=== PATIENT | male | born 1975 | race Caucasian/White ===

== ENCOUNTER 2022-01-12 16:26 | Inpatient (IN) | payer OTHER, SELFPAY ==
[2022-01-12] VITALS (7 sets, daily range): BP systolic 120–143; BP diastolic 68–90; PULSE 81–111; RESP 14–18; TEMP 36.2–36.8; O2SAT 95–97; BMI 29.6; BMI 30.4
[2022-01-12 18:17] LABS: Basophils % 0.4 %; Eosinophils # 0.1 10^3/uL (0.0-0.8); Hematocrit 46.6 % (42.0-52.0); Hemoglobin 15.8 g/dL (11.7-16.6); Lymphocytes % 31.3 %; Mean Corpuscular HGB Conc 33.9 g/dL (30.0-36.0); Mean Corpuscular Hemoglobin 29.4 pg (28.0-34.0); Mean Corpuscular Volume 86.8 fl (80-94); Monocytes # 0.8 10^3/uL (0.2-0.9); Monocytes % 8.4 %; Neutrophils % 58.7 %; Nucleated Red Blood Cells % 0 %; Platelet Count 349 10^3/cmm (130-400); Red Blood Count 5.37 10^6/uL (4.1-5.3); Red Cell Distribution Width 13.5 % (12.1-15.1); White Blood Count 9.6 10^3/uL (4.0-10.0)
[2022-01-12 18:37] LABS: Alanine Aminotransferase 18 U/L (0-41); Albumin Level 4.3 g/dL (3.5-5.2); Alkaline Phosphatase 87 IU/L (40-130); Aspartate Amino Transferase 18 U/L (0-40); Blood Urea Nitrogen 17 mg/dL (6-20); Calcium 9.6 mg/dL (8.5-10.5); Carbon Dioxide 23 mmol/L (22-29); Chloride 92 mmol/L (98-107); Globulin 2.7 g/dL (1.3-4.6); Glomerular Filtration Rate 90.8 mL/min (90-130); Glucose 93 mg/dL (65-115); Lipase 19 U/L (13-60); Osmolality Calculated 273 mOsm/kg (285-295); Sodium 131 mmol/L (136-145); Total Bilirubin 0.5 mg/dL (0.15-1.2)
--- NOTE | 2022-01-12 18:44 | CTR_ITS ---
PROCEDURE INFORMATION: Exam: CT Abdomen And Pelvis Without Contrast Exam date and time: 01/12/2022 7:10 PM Age: 46 years old Clinical indication: Abdominal pain; Generalized; Additional info: Generalized abd pain, abdomen bloating, TECHNIQUE: Imaging protocol: Computed tomography of the abdomen and pelvis without contrast. Radiation optimization: All CT scans at this facility use at least one of these dose optimization techniques: automated exposure control; mA and/or kV adjustment per patient size (includes targeted exams where dose is matched to clinical indication); or iterative reconstruction. COMPARISON: CR XR abdomen min 2V [id number] 01/11/2022 12:58 PM RADIATION DOSE METRICS: Total DLP (mGy-cm): 4.31 FINDINGS: Liver: Normal. No mass. Gallbladder and bile ducts: Normal. No calcified stones. No ductal dilation. Pancreas: Normal. No ductal dilation. Spleen: Normal. No splenomegaly. Adrenal glands: Normal. No mass. Kidneys and ureters: Normal. No hydronephrosis. Stomach and bowel: Dilated small bowel loops measuring up to 5.3 cm consistent with an obstruction, perhaps high-grade given the degree of dilation, negative for transition point seen. Additionally a large amount of air is seen in the colon with mild dilation of the colon to 9.5 cm, negative for focal transition point, suggestive of possible Monica's syndrome. Appendix: No evidence of appendicitis. Intraperitoneal space: Unremarkable. No free air. No significant fluid collection. Vasculature: Unremarkable. No abdominal aortic aneurysm. Lymph nodes: Unremarkable. No enlarged lymph nodes. Urinary bladder: Unremarkable as visualized. Reproductive: Unremarkable as visualized. Bones/joints: Unremarkable. No acute fracture. Soft tissues: Unremarkable. CT/CT abdomen pelvis wo con [id number] IMPRESSION: Dilated small bowel loops measuring up to 5.3 cm consistent with an obstruction, perhaps high-grade given the degree of dilation, negative for transition point seen. Additionally a large amount of air is seen in the colon with mild dilation of the colon to 9.5 cm, with a suspected transition point in the mid sigmoid colon, best seen series 3, image 86, consider correlation with colonoscopy to exclude an underlying lesion
--- NOTE | 2022-01-12 19:00 | W.ED.ABDPA2 ---
HPI - Abdominal Pain General: Chief Complaint: Abdominal Pain Stated Complaint: Doc sent to be checked for blockage in stomach Time Seen by Provider: 01/12/22 18:25 Source: patient Mode of arrival: ambulatory Limitations: no limitations History of Present Illness: This patient was referred to the emergency department for evaluation. He was seen at one of the local acute care clinics yesterday and based upon some findings which are not available to us at this time was referred here for further evaluation. The patient gives a history over the past number of weeks of having intermittent episodes where he feels bloated and full. He says it during these episodes he attempts to eat various foods and drinks and sometimes successfully sometimes not and winds up having repetitive emesis. He states it does not seem to be related to any particular kind of foods over the past 2 weeks. He states that he was quite symptomatic yesterday but today he feels less symptoms. He states that he has never had any abdominal surgeries. He states his stools have decreased in volume and caliber particularly when he has had less success with eating. He denies any fevers or chills or exposure to illness at home. He does admit to increased stress over this past several months related to job change. 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 much easier. He states he has been urinating but a periods of time when he has repetitive vomiting he does not urinate as much and his urine seems to be more concentrated. He denies any blood in his stool or blood in his emesis. He is a almost quit smoker and does not drink alcohol currently. He does not take any nonsteroidals etc. He has occasionally taken H2 blockers in the past. No history of cardiovascular disease. MD elicited complaint: abdominal pain Pain Consistency: intermittent Quality: cramping and fullness Exacerbating factors: eating Relieving factors: nothing Associated Symptoms: Reports belching, bloating and vomiting; Denies chills, coffee ground emesis, dysuria, fever(s), hematochezia and melena Review of Systems Const: Denies: fever(s), chills or body aches Eyes: Denies: change in vision or blurry vision ENMT: Denies: throat pain, odynophagia or nasal congestion Card: Denies: chest pain, palpitations, irregular heart rhythm, edema or dyspnea on exertion Resp: Denies: dyspnea, productive cough or non-productive cough GI: Reports: vomiting, bloating and belching; Denies: coffee ground emesis, hematochezia or melena : Denies: flank pain, difficulty urinating, dysuria or urinary frequency Musc: Denies: neck pain, back pain, extremity pain or joint swelling Skin/Breast: Denies: rash Neuro: Denies: headache(s), numbness in extremities or weakness in extremities Psych: Denies: anxiety or depression Dennys/Lymph: Denies: easy bruising or easy bleeding Physical Exam Narrative: EXAM NARRATIVE: Makes good eye contact. Answers questions in a goal-directed fashion. Appears to be comfortable. Const: COMMON NORMALS: no acute distress, patient oriented x3 and alert GENERAL APPEARANCE: cooperative and comfortable NUTRITIONAL APPEARANCE: overweight HENMT: COMMON NORMALS: normocephalic, atraumatic, Normal nasal mucous membranes and turbinates present and moist oral mucous membranes HEAD & SCALP: normocephalic and atraumatic NOSE: Normal nasal mucous membranes and turbinates present Eye: COMMON NORMALS: Equal, round and reactive pupils present, EOMs intact bilaterally, conjunctivae normal and no scleral icterus CONJUNCTIVA: Yes conjunctivae normal PUPIL: Yes Equal, round and reactive pupils present Neck/C-Spine: COMMON NORMALS: full ROM, supple, no JVD and No carotid bruits Chest: COMMONS NORMALS: normal inspection of the chest and normal palpation of entire chest wall Resp: COMMON NORMALS: normal respiratory effort, No retractions, No use of accessory muscles and clear to auscultation bilaterally EFFORT & INSPECTION: Yes able to speak in complete sentences AUSCULTATION: clear to auscultation bilaterally Cardio: COMMON NORMALS: no JVD, regular rate, regular rhythm, S1 normal heart sound present, No murmurs present (Cardio) and Peripheral pulses 2+ throughout RATE: regular rate RHYTHM: regular rhythm HEART SOUNDS: S1 normal heart sound present PERIPHERAL PULSES: Peripheral pulses 2+ throughout GI: COMMON NORMALS: Soft to palpation INSPECTION: Yes abdominal distension, Yes central obesity and No Fluid wave present AUSCULTATION: Yes normoactive bowel sounds PALPATION: Yes Soft to palpation and No Rebound tenderness present PERCUSSION: no fluid wave and tympanic to percussion : COMMON NORMALS: Yes no CVA tenderness BLADDER/KIDNEY EXAM: Yes no CVA tenderness Back/Pelvis: COMMON NORMALS: no CVA tenderness, thoracic and lumbar spine normal to inspection, no thoracic nor lumbar tenderness and thoraco-lumbar ROM normal Extremity: COMMON NORMALS: normal to inspection, full ROM, capillary refill normal, no calf tenderness and no pedal edema Neuro: COMMON NORMALS: patient oriented x3, moves all extremities, no focal motor deficits and no sensory deficits noted SENSORIUM/ORIENTATION: Yes alert CRANIAL NERVES: Yes CN normal except as noted SPEECH: speech normal Psych: COMMON NORMALS: mental status grossly normal, Normal thought process present and normal affect THOUGHT PROCESS: Normal thought process present Skin: COMMON NORMALS: no rashes or lesions noted and no jaundice GENERAL SKIN EXAM: no rashes or lesions noted Course Reevaluation(s): Reevaluation #1: CT scan results noted consistent with high-grade bowel obstruction. Discussed findings with patient. Will contact attending surgeon to discuss admission. Time: 20:48 Consultations: Consultation #1: Discussed with attending general surgeon who reviewed his case and he agreed to place the patient in the hospital for treatment and the reevaluation. Time: 21:24 Vital Signs: Vital signs: Vital Signs Temperature 97.5 F L 01/12/22 18:38 Pulse Rate 81 01/12/22 20:53 Respiratory Rate 16 01/12/22 20:53 Blood Pressure 143/82 01/12/22 20:53 Pulse Oximetry 96 01/12/22 20:53 MDM - Abdominal Pain Medical Decision Making Generally healthy gentleman who presents to the emergency department with intermittent episodes of abdominal pain bloating distention and nausea and vomiting has been occurring over the past number of weeks but is worsened over the past week. No prior abdominal surgeries or other significant past medical history. His CT scan today shows what appears to be a high-grade bowel obstruction with with a questionable transition point at the sigmoid. He will be admitted to the hospital for observation NG tube IV hydration and symptom control and followed by general surgery. Differential Diagnosis Likely small bowel obstruction Lab Data I reviewed the patient's lab results. : 01/12/22 18:10 01/12/22 18:10 Labs/Radiology: Radiology Impressions Abdomen/Pelvis CT 01/12/22 18:44 IMPRESSION: Dilated small bowel loops measuring up to 5.3 cm consistent with an obstruction, perhaps high-grade given the degree of dilation, negative for transition point seen. Additionally a large amount of air is seen in the colon with mild dilation of the colon to 9.5 cm, with a suspected transition point in the mid sigmoid colon, best seen series 3, image 86, consider correlation with colonoscopy to exclude an underlying lesion Laboratory Results WBC 9.6 10^3/uL (4.0-10.0) 01/12/22 18:10 RBC 5.37 10^6/uL (4.1-5.3) H 01/12/22 18:10 Hgb 15.8 g/dL (11.7-16.6) 01/12/22 18:10 Hct 46.6 % (42.0-52.0) 01/12/22 18:10 MCV 86.8 fl (80-94) 01/12/22 18:10 MCH 29.4 pg (28.0-34.0) 01/12/22 18:10 MCHC 33.9 g/dL (30.0-36.0) 01/12/22 18:10 RDW 13.5 % (12.1-15.1) 01/12/22 18:10 Plt Count 349 10^3/cmm (130-400) 01/12/22 18:10 MPV 10.0 fL (7.4-10.4) 01/12/22 18:10 Neut % (Auto) 58.7 % 01/12/22 18:10 Lymph % (Auto) 31.3 % 01/12/22 18:10 Dawson % (Auto) 8.4 % 01/12/22 18:10 Eos % (Auto) 1.0 % 01/12/22 18:10 Baso % (Auto) 0.4 % 01/12/22 18:10 Neut # (Auto) 5.60 10^3/uL (1.8-7.7) 01/12/22 18:10 Lymph # (Auto) 3.0 10^3/uL (0.8-4.8) 01/12/22 18:10 Dawson # (Auto) 0.8 10^3/uL (0.2-0.9) 01/12/22 18:10 Eos # (Auto) 0.1 10^3/uL (0.0-0.8) 01/12/22 18:10 Baso # (Auto) 0.0 10^3/uL (0.0-0.1) 01/12/22 18:10 Nucleated RBC % (auto) 0 % 01/12/22 18:10 Nucleated RBCs # 0.0 /100WBC 01/12/22 18:10 Sodium 131 mmol/L (136-145) L 01/12/22 18:10 Potassium 4.0 mmol/L (3.5-5.1) 01/12/22 18:10 Chloride 92 mmol/L (98-107) L 01/12/22 18:10 Carbon Dioxide 23 mmol/L (22-29) 01/12/22 18:10 Anion Gap 20.0 (5-19) H 01/12/22 18:10 BUN 17 mg/dL (6-20) 01/12/22 18:10 Creatinine 0.9 mg/dL (0.7-1.2) 01/12/22 18:10 GFR Calculation 90.8 mL/min (90-130) 01/12/22 18:10 Glucose 93 mg/dL (65-115) 01/12/22 18:10 Calculated Osmolality 273 mOsm/kg (285-295) L 01/12/22 18:10 Calcium 9.6 mg/dL (8.5-10.5) 01/12/22 18:10 Total Bilirubin 0.5 mg/dL (0.15-1.2) 01/12/22 18:10 AST 18 U/L (0-40) 01/12/22 18:10 ALT 18 U/L (0-41) 01/12/22 18:10 Alkaline Phosphatase 87 IU/L (40-130) 01/12/22 18:10 Total Protein 7.0 g/dL (6.6-8.7) 01/12/22 18:10 Albumin 4.3 g/dL (3.5-5.2) 01/12/22 18:10 Globulin 2.7 g/dL (1.3-4.6) 01/12/22 18:10 Lipase 19 U/L (13-60) 01/12/22 18:10 Discharge Plan Discharge Patient Disposition: Admitted As Inpatient Clinical Impression: Small bowel obstruction Condition: Stable Coding Level of Care Code ED Aquatics Director for Chg Fwd Exam Comprehensive
[2022-01-12] MEDS: lactated ringers 1,000 ML 125 ML IV (21:26)
--- NOTE | 2022-01-12 22:16 | PC.NURSE ---
Patient Refusal of NG Tube Placement Patient given education/explanation regarding ordered NG tube placement and benefits. Patient stated I do not want that. I am comfortable now and do not have nausea or puking. If it's absolutely necessary, then I'll do it, but I do not want that right now. I am comfortable. Education reiterated regarding benefits of NG Tube placement. Patient once again stated that he did not want the NG Tube until absolutely necessary.
[2022-01-13] VITALS (8 sets, daily range): BP systolic 109–151; BP diastolic 69–92; PULSE 73–93; RESP 12–20; TEMP 36.3–36.8; O2SAT 95–99
[2022-01-13] MEDS: lactated ringers 1,000 ML 125 ML IV ×3 (06:39→22:54)
--- NOTE | 2022-01-13 06:51 | P.HP_ITS ---
Providers/Chief Complaint Admitting Physician: Glen Carpenter MD Chief Complaint: Doc sent to be checked for blockage in stomach History of Present Illness Mr. Daren Edmond is a pleasant 46 year old male presents to the emergency department based on recommendation of an urgent care provider day before admission. Apparently the patient has been having sense of bloating over the past few weeks and last time he had a bowel movement was Sunday. He has been having intermittent episodes of vomiting. Does not seem to be related to any specific type of food. He denies any previous abdominal surgeries. And appears to be more constipated. Per nursing staff patient had lost about 35 pounds over the past few months. Pain is more cramping and being intermittent, gets worse with eating and nothing makes it better associated with belching and vomiting. Denies any bleeding per orifices. Lab values are within normal limits and undergone a KUB that did show Air-fluid levels on the upright view with moderate diffuse pancolonic constipation. Findings can be further evaluated CT abdomen pelvis to assess obstruction versus ileus. CT scan of the abdomen pelvis was done following that that showed; Dilated small bowel loops measuring up to 5.3 cm consistent with an obstruction, perhaps high-grade given the degree of dilation, negative for transition point seen. Additionally a large amount of air is seen in the colon with mild dilation of the colon to 9.5 cm, with a suspected transition point in the mid sigmoid colon, best seen series 3, image 86, consider correlation with colonoscopy to exclude an underlying lesion General surgery was consulted for admission and potential management Patient reports that he does not have any bleeding per rectum or history of colon cancer and he never had a colonoscopy before, before couple of weeks or so he had very large bowel movement which was hard and he had a huge relief at that point. Does not recall any change in caliber like a toothpick structure Review of Systems General: Reports: 10 or more systems reviewed and unremarkable except in HPI and below Medications/Allergies Home Medications Medication Instructions Recorded Confirmed Last Taken Type pantoprazole 20 mg tablet,delayed 20 mg PO DAILY@10 01/13/22 01/13/22 01/12/22 History release Allergies Allergy/AdvReac Type Severity Reaction Status Date / Time No Known Allergies Allergy Verified 01/13/22 13:30 PFSH Acute PFSH: Social History Alcohol intake: never Desire information about alcohol rehabilitation?: No Vitals/I&O/Wt Last Vital Signs Temp 98.2 F 01/13/22 03:43 Pulse 76 01/13/22 03:43 Resp 18 01/13/22 03:43 BP 128/78 01/13/22 03:43 Pulse Ox 95 01/13/22 03:43 01/12/22 01/12/22 01/13/22 14:59 22:59 06:59 Intake Total 1000 / 1000 Output Total 400 / 400 Balance 600 / 600 Weight last 48 hrs Weight 231 lb Weight 231 lb Physical Exam Const: COMMON NORMALS: no acute distress and patient oriented x3 GENERAL APPEARANCE: cooperative ORIENTATION/CONSCIOUSNESS: Yes awake, Yes oriented to person, Yes oriented to place and Yes oriented to time HENMT: COMMON NORMALS: normocephalic HEAD & SCALP: normocephalic Eye: COMMON NORMALS: Equal, round and reactive pupils present and no scleral icterus PUPIL: Yes Equal, round and reactive pupils present Lymph: LYMPHATIC: no lymphadenopathy noted Chest: COMMONS NORMALS: normal inspection of the chest Resp: COMMON NORMALS: normal respiratory effort and clear to auscultation bilaterally AUSCULTATION: clear to auscultation bilaterally Cardio: COMMON NORMALS: S1 normal heart sound present and S2 normal heart sound present; negative for No murmurs present (Cardio) HEART SOUNDS: S1 normal heart sound present and S2 normal heart sound present GI: COMMON NORMALS: Soft to palpation; negative for No hepatosplenomegaly present INSPECTION: Yes normal to inspection PALPATION: Yes Soft to palpation, No Firmness to palpation present (GI), No Tenderness to palpation present (GI), No Guarding due to palpation present (GI), No Rigid due to palpation and No No hepatosplenomegaly present Neuro: COMMON NORMALS: patient oriented x3 SENSORIUM/ORIENTATION: Yes oriented to person, Yes oriented to place and Yes oriented to time Psych: COMMON NORMALS: mental status grossly normal Skin: COMMON NORMALS: no rashes or lesions noted GENERAL SKIN EXAM: no rashes or lesions noted Data : 01/12/22 18:10 01/12/22 18:10 A&P Assessment and plan (1) Large bowel obstruction: Plan of care; After thorough history and physical examination and reviewing the chart, and images with my personal trepidation, we will plan to insert NG tube to low int ermittent wall suction to decompress the bowel. I am concerned that the patient may have a sigmoid colon pathology that is causing the obstruction. Plan to perform flex sigmoidoscopy GI lab using CO2 I discussed with the patient in details the risks,benefits,alternatives and indications.The risk of aspiration, bleeding, soft tissue injury, perforation of the colon and other potential concomitant complications were explained to the patient in details,also the potential need for Laproscoy/Laparotomy to repair any related complications including but not limited to colectomy and or Closotomy.The patient understood this well and did agree to proceed. Rationale was carefully and clearly discussed with the patient.Appropriate informed consent have been reviewed and signed All questions have been answered and all concerns have been addressed to patient's satisfaction. Verbal and written Instructions were given to the patient for colonoscopy prep As a side note I did discuss in depth and in length with Dr. San our radiologist the CT scan findings and he did not appreciate gross pathology of the rectosigmoid area but it does not appear that the patient has a volvulus either. I would plan to perform a flex sig and rule out potential underlying neoplasia. Status: Acute Attestations Medical Necessity Statement*: Patient will require inpatient admission passing 2 midnight for further care Coding Level of Care Code Acute Assistant Professor Of Mathematics for [facility] Fwd Exam Comprehensive Diagnoses Large bowel obstruction K56.609
--- NOTE | 2022-01-13 07:44 | XR_ITS ---
WS: [email or web address] KUB, AP view, 01/13/2022 Clinical Data: verify NG tube placement Comparison: KUB, 01/11/2022. Findings: The nasogastric tube may be curled in the fundus of the stomach. There are dilated small bowel loops throughout the abdomen unchanged. XR/XR abdomen 1V* [id number] Impression: Distal nasogastric tube probably in fundus of the stomach.
--- NOTE | 2022-01-13 08:16 | XR_ITS ---
WS: [email or web address] KUB, AP view, 01/13/2022 0823 hours Clinical Data: repeat verification of NG tube placement Comparison: KUB, 01/13/2022, 0752 hours Findings: The position of the nasogastric tube has not changed significantly. Again it may be curled in the fun dus of the stomach. There is a large amount of small bowel gas throughout the abdomen. XR/XR abdomen 1V* [id number] Impression: Distal portion of the nasogastric tube may be curled in the fundus of the stoma ch.
[2022-01-13 08:23] LABS: Carcinoembryonic Antigen 2.8 ng/mL (0.0-4.7)
--- NOTE | 2022-01-13 08:57 | XR_ITS ---
WS: [email or web address] KUB, AP view, 01/13/2022, 0905 hours Clinical Data: repeat ng placement Comparison: KUB, 01/13/2022, 0823 hours. Findings: The nasogastric tube has been straightened. The tip is probably within the fundus of the stomach. The re is still a large amount of small bowel gas. XR/XR abdomen 1V* [id number] Impression: Nasogastric tube is now straight and probably ends in the fundus of the stomach .
--- NOTE | 2022-01-13 11:12 | PC.NURSE ---
DR. DIAZ CALLED TO GET AN UPDATE ON PATIENT. NO OUTPUT FROM NG TUBE CURRENTLY. PATIENT IS STILL NOT PASSING ANY GAS.
--- NOTE | 2022-01-13 13:45 | ANES.PREANE2 ---
Pre-Anesthetic Assessment Height/Weight: Height 1.85 m Weight 104.78 kg Temp Pulse Resp BP Pulse Ox 98 F 76 12 134/90 96 01/13/22 12:00 01/13/22 12:00 01/13/22 12:00 01/13/22 12:00 01/13/22 12:00 Preop Diagnosis: Large bowel obstruction Operation Date: 01/13/22 14:30 Proposed Procedures p Sigmoidoscopy(Not Applicable) - Glen Carpenter MD Last intake: 1300 on 01/12/22 Last Intake: 16:00 Social Alcohol (quit drinking 3 month) and Tobacco (1/2 ppd) Exam alert and oriented x 3 Airway Mallampati: Class II Dentition: chipped (upper back molars) History/ROS No significant history except as noted Pulmonary Chronic Obstructive Pulmonary Disease None reported Hepatic None reported GI Gastroesophageal Reflux Disease Metabolic None reported Musc/skel None reported Neuropsych None reported Anesthetic Plan ASA status: 2 Anesthesia: MAC Risk of > 500 ml blood loss (7ml/kg in children): No Medications/Allergies Home Medications Medication Instructions Recorded Confirmed Last Taken Type pantoprazole 20 mg tablet,delayed 20 mg PO DAILY@10 01/13/22 01/13/22 01/12/22 History release Allergies Allergy/AdvReac Type Severity Reaction Status Date / Time No Known Allergies Allergy Verified 01/13/22 13:30 Current Medications Generic Name Dose Route Start Last Admin Trade Name Freq PRN Reason Stop Dose Admin Lactated Ringer's 1,000 mls @ 125 mls/hr 01/12/22 21:15 01/13/22 06:39 Lactated Ringers IV 125 mls/hr .Q8H KIMBERLEE Administration PFSH Anesthesia Social History Alcohol intake: never Desire information about alcohol rehabilitation?: No Data Anesthesia : 01/12/22 18:10 01/12/22 18:10 Short CBC 01/12/22 Range/Units 18:10 WBC 9.6 (4.0-10.0) 10^3/uL Hgb 15.8 (11.7-16.6) g/dL Hct 46.6 (42.0-52.0) % MCV 86.8 (80-94) fl Plt Count 349 (130-400) 10^3/cmm Neut % (Auto) 58.7 % Neut # (Auto) 5.60 (1.8-7.7) 10^3/uL BMP 01/12/22 18:10 Sodium 131 L Potassium 4.0 Chloride 92 L Carbon Dioxide 23 BUN 17 Creatinine 0.9 Glucose 93 Calcium 9.6 Liver Function 01/12/22 Range/Units 18:10 Total Bilirubin 0.5 (0.15-1.2) mg/dL AST 18 (0-40) U/L ALT 18 (0-41) U/L Alkaline Phosphatase 87 (40-130) IU/L Albumin 4.3 (3.5-5.2) g/dL Cardiac Studies: No Data to Display
[2022-01-13] MEDS: sodium chloride 0.9% 1,000 ML 30 ML IV ×2 (14:00→15:45)
[2022-01-13] MEDS: famotidine 20 mg/2 mL INJ IVP (17:08)
--- NOTE | 2022-01-13 21:49 | PC.NURSE ---
Flushed patient's NG tube with 50mL water per Dr Wong instructions over the phone. Patient stated that there was no pain or nausea afterwards. NG hooked back to low-intermittent suctions. No output so far in the shift
[2022-01-14] VITALS: BP 128/74; PULSE 78; RESP 18; TEMP 36.8; O2SAT 96
[2022-01-14 03:38] VITALS: BP 132/87; PULSE 75; RESP 16; TEMP 36.8; O2SAT 97
--- NOTE | 2022-01-14 05:00 | XRR_ITS ---
PROCEDURE INFORMATION: Exam: XR Abdomen Exam date and time: 01/14/2022 6:16 AM Age: 46 years old Clinical indication: Condition or disease. Intestinal obstruction. Large bowel obstruction. Erect and supine positions. TECHNIQUE: Imaging protocol: XR of the abdomen. Views: 2 Views. Upright and supine views. COMPARISON: CR XR abdomen 1V* [id number] 01/13/2022 9:03 AM FINDINGS: Tubes, catheters and devices: Nasogastric tube with tip in the proximal stomach. Gastrointestinal tract: The stomach, numerous loops of small bowel and colon are distended to the level of the sigmoid colon compatible with colonic obstruction. The appearance is similar to prior. Intraperitoneal space: No free intraperitoneal air is identified. Vasculature: No portal venous gas is seen. Bones/joints: No gross acute fracture. XR/XR abdomen min 2V [id number] IMPRESSION: 1. Nasogastric tube with tip in the proximal stomach. 2. The stomach, numerous loops of small bowel and colon are distended to the level of the sigmoid colon compatible with colonic obstruction. The appearance is similar to prior.
[2022-01-14] MEDS: famotidine 20 mg/2 mL INJ IVP (05:17)
[2022-01-14] MEDS: lactated ringers 1,000 ML 125 ML IV (05:18)
--- NOTE | 2022-01-14 07:40 | PM.PN ---
Subjective Subjective: Patient overall feels a whole lot better, continues to pass gas and he had a bowel movement towards the end of the day shift yesterday after the endoscopy. Medications: Reviewed: Yes Vitals/I&O/Wt Last Vital Signs Temp 98.3 F 01/14/22 03:38 Pulse 75 01/14/22 03:38 Resp 16 01/14/22 03:38 BP 132/87 01/14/22 03:38 Pulse Ox 97 01/14/22 03:38 01/13/22 01/14/22 01/14/22 22:59 06:59 14:59 Intake Total 2118.75 / 3118.75 800 / 3918.75 Balance 2118.75 / 2468.75 800 / 3268.75 Weight last 48 hrs Weight 231 lb Weight 231 lb Physical Exam Narrative: Patient is conscious alert oriented X3 No apparent distress BMI 30.5 Head and neck examination PERRLA no masses no cervical lymphadenopathy no jaundice NG in place with minimal Abdomen nontender less distended soft no organomegaly guarding or rigidity/no signs of peritonitis Positive bowel sounds Extremities no cyanosis no clubbing no edema Data : 01/12/22 18:10 01/12/22 18:10 A&P Assessment and plan (1) Large bowel obstruction: Plan of care; We will plan to DC NG tube after reviewing the x-ray images with my personal interpretation, most of the gas confined to the small and large bowel .I do not believe at this point that the NG is helping much. As patient continues to pass gas I did encourage him to ambulate Certainly I would like to see regression of the gaseous distention on the x-rays and correlate this clinically At some point patient will require a barium enema We will provide the patient with glycerin suppositories Patient can have ice chips and will continue IV fluid resuscitation Repeat labs for today Assurance and education All questions have been answered and all concerns have been addressed to patient's satisfaction. Status: Acute Attestations Medical Necessity Statement*: Requiring inpatient admission passing 2 midnights to resume bowel function and start p.o. intake Time Spent in Patient Care: 16 - 35 minutes Coding Level of Care Code Acute [employer] Educator for [facility] Diagnoses Large bowel obstruction K56.609
[2022-01-14 07:48] VITALS: BP 130/85; PULSE 75; RESP 16; TEMP 36.9; O2SAT 96
--- NOTE | 2022-01-14 08:37 | FL_ITS ---
WS: [id number] Gastrografin Enema TECHNICAL: Single contrast limited Gastrografin enema FLUOROSCOPY TIME: CLINICAL INFORMATION: Colonic obstruction COMPARISON: CT January 12, 2022 FINDINGS: Single contrast Gastrografin enema to evaluate for stricture. Enema tube is placed with balloon inflated. Correlation with recent CT January 12, 2022. Rapid filling of the rectum and distal sigmoid colon. Apparent stricture in the proximal to mid sigmoid colon. Contra st traverses this area of stricture initially with additional contrast pooling in the rectum. Associa nayana diverticulosis in the sigmoid colon is visualized. Findings most likely due to stricture from patsy or diverticulitis. Neoplasm is an additional less likely consideration No intraluminal filling defect s. Additional area of mild narrowing distal to the above-described stricture in the more proximal sig moid colon with intact mucosa likely due to sigmoid tortuosity. FL/FL barium enema [id number] IMPRESSION: High-grade stricture with partial obstruction in the proximal and mid sigmoid c olon most likely due to prior diverticulitis. Neoplasm should be excluded. Discussed with Glen Carpenter MD at time of examination. Dr. Carpenter present for examination.
[2022-01-14] MEDS: glycerin adult supp 1 EACH PR (09:28)
[2022-01-14 09:40] LABS: Basophils # 0.1 10^3/uL (0.0-0.1); Basophils % 0.7 %; Eosinophils # 0.1 10^3/uL (0.0-0.8); Eosinophils % 0.7 %; Hematocrit 44.3 % (42.0-52.0); Hemoglobin 14.9 g/dL (11.7-16.6); Lymphocytes # 2.1 10^3/uL (0.8-4.8); Lymphocytes % 25.1 %; Mean Corpuscular HGB Conc 33.6 g/dL (30.0-36.0); Mean Corpuscular Hemoglobin 29.7 pg (28.0-34.0); Mean Corpuscular Volume 88.4 fl (80-94); Monocytes # 0.6 10^3/uL (0.2-0.9); Monocytes % 7.4 %; Neutrophils # 5.43 10^3/uL (1.8-7.7); Neutrophils % 65.9 %; Nucleated Red Blood Cells % 0 %; Platelet Count 313 10^3/cmm (130-400); Red Blood Count 5.01 10^6/uL (4.1-5.3); Red Cell Distribution Width 13.5 % (12.1-15.1); White Blood Count 8.3 10^3/uL (4.0-10.0)
[2022-01-14 09:43] VITALS: PULSE 82; RESP 17; O2SAT 98
[2022-01-14 09:53] LABS: Alanine Aminotransferase 17 U/L (0-41); Albumin Level 3.8 g/dL (3.5-5.2); Alkaline Phosphatase 84 IU/L (40-130); Anion Gap 19.8 (5-19); Aspartate Amino Transferase 18 U/L (0-40); Blood Urea Nitrogen 11 mg/dL (6-20); Calcium 9.2 mg/dL (8.5-10.5); Carbon Dioxide 20 mmol/L (22-29); Chloride 98 mmol/L (98-107); Creatinine Clr Calc Pharmacy 146.6335; Globulin 2.9 g/dL (1.3-4.6); Glomerular Filtration Rate 104.1 mL/min (90-130); Glucose 79 mg/dL (65-115); Lactate (Lactic Acid level) 0.9 mmol/L (0.5-2.2); Osmolality Calculated 276 mOsm/kg (285-295); Potassium 3.8 mmol/L (3.5-5.1); Sodium 134 mmol/L (136-145); Total Bilirubin 0.6 mg/dL (0.15-1.2); Total Protein 6.7 g/dL (6.6-8.7)
[2022-01-14] MEDS: diatrizoate meglumine 120 mL Sol XX (11:28)
[2022-01-14 12:00] VITALS: BP 158/93; PULSE 87; RESP 16; TEMP 36.7; O2SAT 98
--- NOTE | 2022-01-14 13:13 | ANE.PACU2 ---
Inpatient post-anesthesia follow up: Airway intact: Yes Vital signs: Temperature 98.1 F Pulse Rate 87 Respiratory Rate 16 Blood Pressure 158/93 Pulse Oximetry 98 Oxygen Delivery Me thod Room Air Oxygen Flow Rate 100 Fraction of Inspir ed Oxygen Hydration adequate: Yes Nausea and vomiting: No Pain level: 1 Mental status: Baseline
--- NOTE | 2022-01-14 14:59 | P.DS_ITS ---
Discharge Providers Date of Admission: 01/12/22 21:27 Date of Discharge: January 14, 2022 Attending Provider at Admission: Shena Velázquez MD Attending Provider at Discharge: Shena Velázquez MD Diagnoses at Discharge Discharge Diagnosis (1) Large bowel obstruction: Status: Acute (2) Colon stricture: Status: Acute Reason for Visit Reason for Visit: Doc sent to be checked for blockage in stomach Brief History: Mr. Daren Edmond is a pleasant 46 year old male presents to the emergency department based on recommendation of an urgent care provider day before admission.? Apparently the patient has been having sense of bloating over the past few weeks and last time he had a bowel movement was Sunday.? He has been having intermittent episodes of vomiting.? Does not seem to be related to any specific type of food.? He denies any previous abdominal surgeries.? And appears to be more constipated.? Per nursing staff patient had lost about 35 pounds over the past few months.? Pain is more cramping and being intermittent, gets worse with eating and nothing makes it better associated with belching and vomiting.? Denies any bleeding per orifices. Lab values are within normal limits and undergone a KUB that did show Air-fluid levels on the upright view with moderate diffuse pancolonic co nstipation. Findings can be further evaluated CT abdomen pelvis to assess obstruction versus ileus. CT scan of the abdomen pelvis was done following that that showed; Dilated small bowel loops measuring up to 5.3 cm consistent with an obstruction, perhaps high-grade given the degree of dilation, negative for transition point seen. Additionally a large amount of air is seen in the colon with mild dilation of the colon to 9.5 cm, with a suspected transition point in the mid sigmoid colon, best seen series 3, image 86, consider correlation with colonoscopy to exclude an underlying lesion ?General surgery was consulted for admission and potential management Patient reports that he does not have any bleeding per rectum or history of colon cancer and he never had a colonoscopy before, before couple of weeks or so he had very large bowel movement which was hard and he had a huge relief at that point.? Does not recall any change in caliber like a toothpick structure. Patient admitted to my service for further evaluation and rule out underlying pathology. Hospital Course Hospital Course -Admitting patient to my service and NG was placed, and Did not have much out and based on discussions with the radiologist Dr. San there was no evidence of distinct colonic pathology on the CT scan yet there was a concern that the patient may have an intra-colonic pathology causing his obstruction, subsequently the patient yesterday went for a Sigmoidoscopy by me. I was not able to pass at 30 cm from the anal orifice further proximal to evaluate the remaining of the colon following that,Patient was able to pass a lot of gas and fecal disimpaction was achieved during this procedure. Patient continued to have stable vital signs and appropriate blood work. With adequate urine output. Yet today on repeat KUB did demonstrate continued distention of the colon and small bowel and I was able to get a hold of radiologist Jimbo Vega As he confirmed to me that there is no evidence of any sigmoid volvulus of the KUB or the CT scan. And he proposed potential diagnosis of Monica syndrome, and per our discussion recommended to obtain a Gastrografin enema yet had to be gentle with the infusion of the contrast to avoid perforation, to have a better understanding of the underlying colonic anatomy. Subsequently I was able to get a hold of Dr. San our radiologist and he was kindly able to come as he was not on-call who performed a Gastrografin enema and I was present during the procedure. contrast was able to go through a stricture distal/mid sigmoid colon which coincides with the same segment that I was not able to navigate using the endoscope. And thus it was determined for sure that the patient does have a colonic stricture likely due to underlying complicated by diverticulosis and at this point the patient after returning to the floor he was counseled for exploratory laparotomy with sigmoid resection and colostomy formation meaning Taylor's procedure. 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 At this point I counseled the patient to proceed with surgery as soon as possible likely be tomorrow morning to allow to evacuate the Gastrografin I did advise the patient to talk with his and he understood that without surgery he has a higher chance of colon perforation and demise. I elected at that point with the plan to return on evening rounds and discuss further with the patient and talk with his also,but Arround 02: 11 PM I received a phone call from the nursing staff Ms. Mata taking care of the patient that the patient decided not to have surgery and he would like to visit with his family and go home and discuss further with them. At this point I did express my concern that I would not be able to discharge the patient based on his clinical status and if patient decided to leave he would to leave AGAINST MEDICAL ADVICE. Understanding the potential risks of perforation of the colon, bleeding, peritonitis and . And I did highly recommend that the patient go to another facility via an ER and should not wait as he does have a higher chance of colonic perforation and . Nursing staff Esperanza and charge nurse Cari was able to talk with the patient and his spouse and explained for them in details of overall risks by leaving AGAINST MEDICAL ADVICE. Patient and spouse understood and patient signed the appropriate documents and patient left.As he had mentioned to the nursing staff that he would like to have a second opinion at another facility. Discharge Data Studies Completed and Pending Completed Studies During Hospitalization Category Date Time Status CT abdomen pelvis wo con [id number] Urgent Cat Scan 01/12/22 18:44 Completed XR abdomen 1V* [id number] Routine Exams 01/13/22 08:57 Completed XR abdomen 1V* [id number] Stat Exams 01/13/22 07:44 Completed XR abdomen 1V* [id number] Stat Exams 01/13/22 08:16 Completed XR abdomen min 2V [id number] Routine Exams 01/14/22 05:00 Completed Pending at discharge Category Date Time Status [place] barium enema [id number] Urgent Exams 01/14/22 08:37 Taken Radiology Impressions Abdomen/Pelvis CT 01/12/22 18:44 IMPRESSION: Dilated small bowel loops measuring up to 5.3 cm consistent with an obstruction, perhaps high-grade given the degree of dilation, negative for transition point seen. Additionally a large amount of air is seen in the colon with mild dilation of the colon to 9.5 cm, with a suspected transition point in the mid sigmoid colon, best seen series 3, image 86, consider correlation with colonoscopy to exclude an underlying lesion Abdomen X-Ray 01/14/22 05:00 IMPRESSION: 1. Nasogastric tube with tip in the proximal stomach. 2. The stomach, numerous loops of small bowel and colon are distended to the level of the sigmoid colon compatible with colonic obstruction. The appearance is similar to prior. ADDENDUM: 01/14/22 0805 Findings discussed with SHENA VELÁZQUEZ at 01/14/2022 8:29 AM CDT. In the absence of obstructive colonic lesion on flexible sigmoidoscopy, this could reflect [place]'s syndrome (colonic pseudo-obstruction) or adynamic state. Laboratory Results WBC 8.3 10^3/uL (4.0-10.0) 01/14/22 09:25 RBC 5.01 10^6/uL (4.1-5.3) 01/14/22 09:25 Hgb 14.9 g/dL (11.7-16.6) 01/14/22 09:25 Hct 44.3 % (42.0-52.0) 01/14/22 09:25 MCV 88.4 fl (80-94) 01/14/22 09:25 MCH 29.7 pg (28.0-34.0) 01/14/22 09:25 MCHC 33.6 g/dL (30.0-36.0) 01/14/22 09:25 RDW 13.5 % (12.1-15.1) 01/14/22 09:25 Plt Count 313 10^3/cmm (130-400) 01/14/22 09:25 MPV 10.0 fL (7.4-10.4) 01/14/22 09:25 Neut % (Auto) 65.9 % 01/14/22 09:25 Lymph % (Auto) 25.1 % 01/14/22 09:25 George % (Auto) 7.4 % 01/14/22 09:25 Eos % (Auto) 0.7 % 01/14/22 09:25 Baso % (Auto) 0.7 % 01/14/22 09:25 Neut # (Auto) 5.43 10^3/uL (1.8-7.7) 01/14/22 09:25 Lymph # (Auto) 2.1 10^3/uL (0.8-4.8) 01/14/22 09:25 George # (Auto) 0.6 10^3/uL (0.2-0.9) 01/14/22 09:25 Eos # (Auto) 0.1 10^3/uL (0.0-0.8) 01/14/22 09:25 Baso # (Auto) 0.1 10^3/uL (0.0-0.1) 01/14/22 09:25 Nucleated RBC % (auto) 0 % 01/14/22 09:25 Nucleated RBCs # 0.0 /100WBC 01/14/22 09:25 Sodium 134 mmol/L (136-145) L 01/14/22 09:25 Potassium 3.8 mmol/L (3.5-5.1) 01/14/22 09:25 Chloride 98 mmol/L (98-107) 01/14/22 09:25 Carbon Dioxide 20 mmol/L (22-29) L 01/14/22 09:25 Anion Gap 19.8 (5-19) H 01/14/22 09:25 BUN 11 mg/dL (6-20) 01/14/22 09:25 Creatinine 0.8 mg/dL (0.7-1.2) 01/14/22 09:25 GFR Calculation 104.1 mL/min (90-130) 01/14/22 09:25 Glucose 79 mg/dL (65-115) 01/14/22 09:25 Calculated Osmolality 276 mOsm/kg (285-295) L 01/14/22 09:25 Lactate 0.9 mmol/L (0.5-2.2) 01/14/22 09:25 Calcium 9.2 mg/dL (8.5-10.5) 01/14/22 09:25 Total Bilirubin 0.6 mg/dL (0.15-1.2) 01/14/22 09:25 AST 18 U/L (0-40) 01/14/22 09:25 ALT 17 U/L (0-41) 01/14/22 09:25 Alkaline Phosphatase 84 IU/L (40-130) 01/14/22 09:25 Total Protein 6.7 g/dL (6.6-8.7) 01/14/22 09:25 Albumin 3.8 g/dL (3.5-5.2) 01/14/22 09:25 Globulin 2.9 g/dL (1.3-4.6) 01/14/22 09:25 Lipase 19 U/L (13-60) 01/12/22 18:10 Carcinoembryonic Ag 2.8 ng/mL (0.0-4.7) 05/05/22 18:10 Procedures Performed Flexible Sigmoidoscopy and barium enema. Vitals Last Vital Signs Temp 98.1 F 01/14/22 12:00 Pulse 87 01/14/22 12:00 Resp 16 01/14/22 12:00 BP 158/93 01/14/22 12:00 Pulse Ox 98 01/14/22 12:00 Discharge Plan Discharge Patient Disposition: Left Against Medical Advice Condition: Stable Prescriptions: No Action pantoprazole 20 mg tablet,delayed release (DR/EC) 20 mg PO DAILY@10 0RF Referrals: Earl Torrez DO [Staff Physician] - Discharge Diet: As Directed Discharge Activity: Limit activity as instructed Patient Instructions: GI Discharge Instructions Activity Restrictions/Additional Instructions: Patient left AGAINST MEDICAL ADVICE Discharge Attestations Time Spent in Discharge Care*: greater than 30 min Status at Discharge: Cognitive status at discharge: cognitively intact , Behavioral status at discharge: cooperative , Functional status at discharge: independent ambulation , Overall status at discharge: patient is not back to baseline Quality Metrics Clinical Quality Measures [ No reported AMI, CVA or VTE this stay] Coding Level of Care Code Acute [facility]g [facility] note Diagnoses Large bowel obstruction K56.609 Colon stricture K56.699
--- NOTE | 2022-01-14 15:08 | PC.NURSE ---
AMA I took the patient information regarding the Janki procedure and permission slip. At [address] Carpenter regarding patient not wanting to sign permission for surgery and tell the Dr that the of said patient was in the room. Patient stated that he was not going to have surgery in the morning and he wanted to get a second opinion and that he wanted to go home to talk with his family regarding the problem . I explained to Dr Carpenter what the patient had said. Dr. Carpenter had me go over the importance of the procedure because without it, his colon could perforate or rupture and there was a chance the he could . I also explained to patient the if he left it would be against medical advise and Dr Carpenter would not release him because of that possibly. I had the patient read over the information and talk with his about his decision. Patient stopped at nursing station to ask that I come to his room. In his room patient explained that he was leaving [facility] and that he was going to see someone he knew. Again I went over the information and the possibility of due to rupture or perforation. Patient with at his side signed the AMA paper.
--- NOTE | 2022-01-14 15:40 | PC.NURSE ---
AMA Pt made the decision to leave against medial advice after Dr. Carpenter made the recommendation for surgery. Pt was educated on the planned procedure and the risk of leaving against medical advice without the procedure. He was informed, by the surgeon and RN, of the possibility of perforation and possible if the procedure was not performed. Dr. Carpenter made the recommendation to go to [facility] or [facility] ED if the patient left AMA. Pt informed staff he wanted a second opinion from someone he knows. Pt signed AMA paperwork and left ambulatory with family.
== END 2022-01-14 14:15 | disposition left against medical advice (07) | DRG 390 ==
LOC: ER 20:49 → MEDSURG 21:54
PROVIDERS: Emergency Medicine; Admitting Provider Surgery; Emergency Provider Emergency Medicine; Visit Provider Surgery
PROC: 0DJD8ZZ Inspection of Lower Intestinal Tract, Via Natural or Artificial Opening Endoscopic (ICD-10-PCS; CPT 45330; principal; 2022-01-13 14:30)
DX: K56.609 Unspecified intestinal obstruction, unspecified as to partial versus complete obstruction (principal); K59.81 Ogilvie syndrome; F17.210 Nicotine dependence, cigarettes, uncomplicated; K57.30 Diverticulosis of large intestine without perforation or abscess without bleeding; Z53.29 Procedure and treatment not carried out because of patient's decision for other reasons
CPT/HCPCS: 36415; 45330; 74018; 74019; 74176; 74270; 80053; 82378; 83605; 83690; 85025; 96360; 99285; J2704; J3490; J7030; Q9963

== ENCOUNTER 2025-07-08 14:20 | Emergency (ER) | payer OTHER, SELFPAY ==
[2025-07-08] VITALS (15 sets, daily range): BP systolic 104–138; BP diastolic 74–97; PULSE 95–139; RESP 18–38; TEMP 36.5; O2SAT 92–97
--- NOTE | 2025-07-08 14:28 | ECG_ITS ---
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
--- NOTE | 2025-07-08 14:44 | ED_ITS ---
HPI - Abdominal Pain 2 General: Chief Complaint: Abdominal Pain Stated Complaint: Lower ABD Pain Dr villanueva Time Seen by Provider: 07/08/25 14:44 History of Present Illness: 50-year-old man with a history of colon stricture, large and small bowel obstructions in the past who presents emergency room with abdominal pain from his primary care provider. Patient has a history of small bowel obstruction from a stricture that required partial colectomy and colostomy which has since been taken down. He says on Sunday he had an episode of nausea and vomiting. He had a bowel movement that day and then some gas the next day but has not had any since. He has been having some right lower quadrant abdominal pain that is occasional and he says it is different than what he normally experiences. He says sometimes since this is been done he has episodes where he gets pain and cannot tolerate food and he will just take liquids for a few days. It almost sounds like he is self treating small bowel obstructions. No fever. No altered mental status. He is tachycardic on presentation. Some moderate tenderness in the right lateral and lower abdomen. His abdomen appears distended but is soft. Related Data Home Medications ?Medication ?Instructions ?Recorded ?Confirmed ferrous sulfate 325 mg (65 mg 325 mg PO DAILY 07/08/25 07/08/25 iron) tablet Allergies Allergy/AdvReac Type Severity Reaction Status Date / Time No Known Allergies Allergy Verified 01/13/22 13:30 Review of Systems 2 Narrative: Constitutional symptoms: Negative except as documented in HPI. Skin symptoms: Negative except as documented in HPI. Eye symptoms: Negative except as documented in HPI. ENMT symptoms: Negative except as documented in HPI. Respiratory symptoms: Negative except as documented in HPI. Cardiovascular symptoms: Negative except as documented in HPI. Gastrointestinal symptoms: Negative except as documented in HPI. Genitourinary symptoms: Negative except as documented in HPI. Musculoskeletal symptoms: Negative except as documented in HPI. Neurologic symptoms: Negative except as documented in HPI. Psychiatric symptoms: Negative except as documented in HPI. Endocrine symptoms: Negative except as documented in HPI. PFSH ED 2 PFSH: Social History Alcohol intake: never Physical Exam 2 Narrative: EXAM NARRATIVE: General: Alert, no acute distress. Skin: Warm, dry. Head: Normocephalic, atraumatic. Neck: Supple, trachea midline. Eye: Extraocular movements are intact. Ears, nose, mouth and throat: Tacky oral mucosa Cardiovascular: Tachycardic, Normal peripheral perfusion. Respiratory: Lungs are clear to auscultation, respirations are non-labored, breath sounds are equal, Symmetrical chest wall expansion. Gastrointestinal: Belly is soft but distended, tenderness in the right lower quadrant. Large surgical scar midline Musculoskeletal: Normal ROM, no deformity. Neurological: Alert and oriented, No focal neurological deficit observed. Psychiatric: Cooperative, appropriate mood & affect. Course 2 Vital Signs: Vital signs: Vital Signs Temperature 97.7 F 07/08/25 14:29 Pulse Rate 95 07/08/25 18:13 Respiratory Rate 38 H 07/08/25 17:00 Blood Pressure 123/88 07/08/25 18:13 Pulse Oximetry 97 07/08/25 18:13 Oxygen Delivery Me thod Room Air 07/08/25 18:13 MDM - Abdominal Pain Medical Decision Making Medical decision making: Patient's reason for coming to the emergency room: Right sided abdominal pain. 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 I reviewed the patient's medical record. Last visit to the emergency room was his only visit here and he had a large bowel obstruction. Sounds like that time he had a endoscopy which showed no obstruction of his colon and it sounds like he probably has chronic [place] syndrome. I reviewed the patient's current home meds Patient says he currently only takes supplements. No regular medications. Alternate historians: None Differential diagnosis for this patient with right lower quadrant abdominal pain including but not limited to and based on the above HPI, review of systems and physical exam: Ureterolithiasis. Urinary tract infection. Appendicitis. colitis. small bowel obstruction. Crohn's flare. Pancreatitis. Cholelithiasis or cholecystitis. Hepatitis. Diverticulitis. Constipation. ovarian cyst. ovarian torsion Workup: Orders were placed to evaluate differential diagnosis based on the above differential, HPI and exam: Lab Review: Laboratory results were reviewed and interpreted by myself the emergency room physician. Leukocytosis with a white count of 15,000. Mild elevation in lactate with a lactate of 2.2. Mild elevation his BUN at 21 with a normal creatinine of 0.8. Liver enzymes are normal. Lipase is normal. Assessment of risk: Level of risk: Moderate Hospitalization considerations: Patient is being admitted. I spoke with general surgery here and they recommend transfer to a tertiary care center as he might need colorectal. Reexamination: Patient remained stable. No increased work of breathing. No altered mental status. No focal motor deficits. Heart rate is improved some with fluids. Consultation: I spoke with transfer center at [facility] in [place]. They are excepting the patient. Dr. Sellers was the surgeon on-call there and she recommended transfer ER to ER and she will see the patient there. Consultation: I spoke with Dr. Worthy an ER physician who is excepted the patient in transfer Assessment and plan: Intra-abdominal abscess Possible bowel perforation Peritoneal free air Toxic megacolon versus [place]'s Dehydration Sepsis -3 L normal saline bolus based on patient's weight at 30 mL/kg -Broad-spectrum antibiotics were administered. Zyvox and meropenem -Sepsis quality measures. -Lactic acid with a reflex was ordered. -Blood cultures were ordered. ?I reevaluated the patient's volume status after sepsis fluids were given. - Discussed findings and plan with patient. Answered any questions. - All laboratory values were reviewed and interpreted personally by myself, the ER physician - All imaging was reviewed and interpreted personally by myself, the ER physician. - Evaluation and treatment of this problem were appropriate in the emergency setting Critical Care: -I spent a total of 40 minutes of critical care time managing the patient, independent of any other practitioner. -The time involved in the performance of separately reportable procedures was not counted towards critical care time. Lab Data 07/08/25 14:50 07/08/25 14:50 Labs/Radiology: Radiology Impressions Abdomen/Pelvis CT 07/08/25 15:01 IMPRESSION: 1. Severe small bowel and colonic dilatation. Air and fecal distention of the colon with loops measuring up to 11 cm in diameter. Colonic wall thickening in the sigmoid. Toxic megacolon and stercoral colitis should be considered. 2. Highly suspicious for bowel perforation. There are several foci of air which cannot be placed within the GI tract. 3. Collection of fluid and air in the RIGHT pelvis measures 11.2 x 5.8 cm. Suspicious for an abscess which may be related to perforation. Surgical consultation recommended. 4. Small amount of ascites. Peripheral enhancement consistent with peritonitis. 5. Numerous mesenteric small lymph nodes. Notified Corazon Ruiz MD at 07/08/2025 3:36 PM. Laboratory Results WBC 15.17 10^3/uL (3.29-11.43) H 07/08/25 14:50 RBC 5.93 10^6/uL (3.85-5.65) H 07/08/25 14:50 Hgb 17.50 g/dL (11.27-16.99) H 07/08/25 14:50 Hct 51.3 % (37-53) 07/08/25 14:50 MCV 86.5 fl (82-101) 07/08/25 14:50 MCH 29.5 pg (27-33) 07/08/25 14:50 MCHC 34.1 g/dL (30-55) 07/08/25 14:50 RDW 13.2 % (12.1-15.1) 07/08/25 14:50 Plt Count 427 10^3/cmm (157-399) H 07/08/25 14:50 MPV 9.0 fL (7.4-10.4) 07/08/25 14:50 Neut % (Auto) 80.4 % 07/08/25 14:50 Lymph % (Auto) 10.7 % 07/08/25 14:50 Navarro % (Auto) 8.1 % 07/08/25 14:50 Eos % (Auto) 0.0 % 07/08/25 14:50 Baso % (Auto) 0.5 % 07/08/25 14:50 Neut # (Auto) 12.19 10^3/uL (1.8-7.7) H 07/08/25 14:50 Lymph # (Auto) 1.6 10^3/uL (0.8-4.8) 07/08/25 14:50 Navarro # (Auto) 1.2 10^3/uL (0.2-0.9) H 07/08/25 14:50 Eos # (Auto) 0.0 10^3/uL (0.0-0.8) 07/08/25 14:50 Baso # (Auto) 0.1 10^3/uL (0.0-0.1) 07/08/25 14:50 Nucleated RBC % (auto) 0 % 07/08/25 14:50 Nucleated RBCs # 0.0 /100WBC 07/08/25 14:50 Sodium 133 mmol/L (136-145) L 07/08/25 14:50 Potassium 4.1 mmol/L (3.5-5.1) 07/08/25 14:50 Chloride 95 mmol/L (98-107) L 07/08/25 14:50 Carbon Dioxide 25 mmol/L (22-29) 07/08/25 14:50 Anion Gap 17.1 (5-19) 07/08/25 14:50 BUN 21 mg/dL (6-20) H 07/08/25 14:50 Creatinine 0.8 mg/dL (0.7-1.2) 07/08/25 14:50 GFR Calculation 102.3 mL/min (90-130) 07/08/25 14:50 Glucose 94 mg/dL (65-115) 07/08/25 14:50 Calculated Osmolality 279 mOsm/kg (285-295) L 07/08/25 14:50 Lactic Acid 2.2 mmol/L (0.5-2.2) 07/08/25 14:50 Calcium 8.9 mg/dL (8.5-10.5) 07/08/25 14:50 Total Bilirubin 0.7 mg/dL (0.15-1.2) 07/08/25 14:50 AST 21 U/L (0-40) 07/08/25 14:50 ALT 17 U/L (0-41) 07/08/25 14:50 Alkaline Phosphatase 149 U/L (40-130) H 07/08/25 14:50 C-Reactive Protein 470.6 mg/L (0.0-4.9) H 07/08/25 14:50 Total Protein 6.6 g/dL (6.6-8.7) 07/08/25 14:50 Albumin 2.9 g/dL (3.5-5.2) L 07/08/25 14:50 Globulin 3.7 g/dL (1.3-4.6) 07/08/25 14:50 Lipase 5 U/L (13-60) L 07/08/25 14:50 All radiology interpretation(s) finalized by discharge Discharge Plan Discharge Patient Disposition: Xfer Short-Term Hosp Clinical Impression: Large bowel obstruction, Intra-abdominal abscess, Free intraperitoneal air, Sepsis Condition: Stable Patient Instructions: Abdominal Pain (ED) Print Language: Mongolian Coding Level of Care Code ED [employer]
[2025-07-08 14:57] LABS: Hematocrit 51.3 % (37-53); Hemoglobin 17.50 g/dL (11.27-16.99); Mean Corpuscular HGB Conc 34.1 g/dL (30-55); Mean Corpuscular Hemoglobin 29.5 pg (27-33); Mean Corpuscular Volume 86.5 fl (82-101); Nucleated Red Blood Cells % 0 %; Platelet Count 427 10^3/cmm (157-399); Red Blood Count 5.93 10^6/uL (3.85-5.65); White Blood Count 15.17 10^3/uL (3.29-11.43)
--- NOTE | 2025-07-08 15:01 | CT_ITS ---
WS: [id number] CT ABDOMEN AND PELVIS WITH CONTRAST HISTORY: Abdominal pain, history of multiple prior colon surgeries. TECHNIQUE: Imaging performed of the abdomen and pelvis with IV contrast. Single phase imaging of the abdomen. Coronal and sagittal reformats are submitted. All CT scans at [facility] use at least one of these dose optimization techniques: automated exposure control; mA and/or kV adjustment per patient size (includes targeted exams where dose is matched to clinical indication); or iterative reconstruction. IV CONTRAST: Omnipaque 350; 100 mL IV. Oral contrast: No DLP: 852.33 mGy.cm COMPARISON: 01/12/2022 Lower thorax: Very small RIGHT pleural effusion. Heart is normal size. No hiatal hernia. Liver/biliary system: Normal size with no intrahepatic dilatation. Gallbladder: Normal. No gallstones or wall thickening. No pericholecystic fluid. Pancreas: Limited visualization. Spleen: Normal size spleen. No mass or infarct. Adrenal glands: Normal. Right kidney: Normal. Left kidney: Normal. Aorta: Normal. Lymphadenopathy: There is small lymph nodes anterior to the heart. Retrocrural lymph node measuring up to 1.4 cm. Numerous central mesenteric lymph nodes are small caliber. Free fluid: Free fluid is identified within the peritoneal cavity. There is fluid adjacent to the inferior RIGHT lobe of the liver. There is peripheral enhancement of this fluid. Small amount of fluid in the LEFT paracolic gutter. There is a fluid collection containing air in the RIGHT pelvis. This collection measures approximately 11.2 x 5.8 cm and is closely associated with an abnormal loop of sigmoid colon. The urinary bladder is compressed and being displaced by this fluid collection and markedly enlarged:. GI tract: There is massive dilatation of the colon and small bowel. Large amount of air and inspissated fecal material within the colon. Diffuse colonic wall thickening involving the sigmoid colon. Sigmoid wall thickening measuring up to 6 mm. There is mild narrowing involving the distal sigmoid. There are also several small surgical clips at the rectosigmoid junction. There are several foci of free air within the abdomen which cannot be placed within the GI tract. Abdominal wall: Thinning of the abdominal musculature. There is a small foci of air near the umbilicus which may be free air or protruding loop of bowel. Favor free air. Pelvis: Urinary bladder is decompressed. Bones: Unremarkable. CT/CT abdomen pelvis w con* [id number] IMPRESSION: 1. Severe small bowel and colonic dilatation. Air and fecal distention of the colon with loops measuring up to 11 cm in diameter. Colonic wall thickening in the sigmoid. Toxic megacolon and stercoral colitis should be considered. 2. Highly suspicious for bowel perforation. There are several foci of air whic h cannot be placed within the GI tract. 3. Collection of fluid and air in the RIGHT pelvis measures 11.2 x 5.8 cm. Prema picious for an abscess which may be related to perforation. Surgical consultati on recommended. 4. Small amount of ascites. Peripheral enhancement consistent with peritonitis . 5. Numerous mesenteric small lymph nodes. Notified Corazon Ruiz MD at 07/08/2025 3:36 PM.
[2025-07-08] MEDS: iohexol 350 mg/mL 500 mL Btl (per mL) IV (15:11)
[2025-07-08 15:13] LABS: Alanine Aminotransferase 17 U/L (0-41); Albumin Level 2.9 g/dL (3.5-5.2); Alkaline Phosphatase 149 U/L (40-130); Blood Urea Nitrogen 21 mg/dL (6-20); Calcium 8.9 mg/dL (8.5-10.5); Carbon Dioxide 25 mmol/L (22-29); Chloride 95 mmol/L (98-107); Creatinine Clr Calc Pharmacy 131.3219; Globulin 3.7 g/dL (1.3-4.6); Glucose 94 mg/dL (65-115); Lipase 5 U/L (13-60); Osmolality Calculated 279 mOsm/kg (285-295); Sodium 133 mmol/L (136-145); Total Protein 6.6 g/dL (6.6-8.7)
[2025-07-08 15:14] LABS: Lactic Sepsis W/Reflex 2.2 mmol/L (0.5-2.2)
[2025-07-08 15:20] LABS: Anion Gap 17.1 (5-19); Aspartate Amino Transferase 21 U/L (0-40); Potassium 4.1 mmol/L (3.5-5.1)
[2025-07-08] MEDS: linezolid premix 600 MG/300 ML PREMIX 300 MG IV (15:57)
[2025-07-08 16:42] LABS: Reflex Lactate Order REFLEX LACTIC ORDERD
[2025-07-08 18:34] LABS: Lactic Acid level (Lactate) 1.5 mmol/L (0.5-2.2)
--- NOTE | 2025-07-08 18:46 | PC.NURSE ---
Report called to marleen alvarado
== END 2025-07-08 22:59 | disposition short-term general hospital (02) ==
PROVIDERS: Emergency Provider Emergency Medicine
DX: K56.609 Unspecified intestinal obstruction, unspecified as to partial versus complete obstruction (principal); K65.1 Peritoneal abscess; K66.8 Other specified disorders of peritoneum; A41.9 Sepsis, unspecified organism
CPT/HCPCS: 36415; 74177; 80053; 83605; 83690; 85025; 86140; 93005; 96361; 96365; 96366; 96375; 99285; J2020; J2185; J7030